=== PATIENT | male | born 1950 | race Caucasian/White ===

== ENCOUNTER 2020-07-31 13:07 | Emergency (ER) | payer OTHER ==
[~2020-07-31] VITALS: Ht 170.2 cm; Wt 60.0 kg
[2020-07-31 15:24] VITALS: BP 130/78
[2020-07-31 15:34] LABS: BASOPHILS % (AUTO) 0.4 % (0-1); EOSINOPHILS # (AUTO) 0.1 X10'3 (0-0.9); EOSINOPHILS % (AUTO) 1.1 % (0-6); HEMATOCRIT 45.1 % (42.0-52.0); HEMOGLOBIN 15.3 g/dl (14.0-17.9); LYMPHOCYTES # (AUTO) 1.7 X10'3 (1.1-4.8); LYMPHOCYTES % (AUTO) 16.2 % (21-51); MEAN CORPUSCULAR HEMOGLOBIN 31.1 PG (27.0-31.0); MEAN CORPUSCULAR HGB CONC 33.9 g/dL (33.0-36.5); MEAN CORPUSCULAR VOLUME 91.8 FL (78-98); MEAN PLATELET VOLUME 8.5 FL (7.4-10.4); MONOCYTES # (AUTO) 1.7 X10'3 (0-0.9); MONOCYTES % (AUTO) 16.7 % (2-12); NEUTROPHILS # (AUTO) 6.8 X10'3 (1.8-7.7); NEUTROPHILS % (AUTO) 65.6 % (42-75); PLATELET COUNT 214 X10'3 (140-440); RED BLOOD COUNT 4.92 X10'6 (4.70-6.10); RED CELL DISTRIBUTION WIDTH 12.5 % (11.5-14.5); WHITE BLOOD COUNT 10.4 X10'3 (4.5-11.0)
[2020-07-31 15:47] LABS: CLARITY,URINE CLEAR (Clear); COLOR,URINE STRAW (Yellow); GLUCOSE, URINE NEGATIVE (Neg); KETONES,URINE TRACE mg/dl (Neg); LEUKOCYTE ESTERASE ,URINE NEGATIVE (Neg); NITRITES, URINE NEGATIVE (Neg); OCCULT BLOOD,URINE TRACE-INTACT (Neg); PROTEIN,URINE NEGATIVE (Neg); UROBILINOGEN,URINE 0.2 E.U/dL (0.2-1.0)
[2020-07-31 15:48] LABS: UA COLLECTION TYPE URINAL
[2020-07-31 15:49] LABS: ALANINE AMINOTRANSFERASE 16 U/L (12-78); ALBUMIN 3.5 G/DL (3.4-5.0); ALBUMIN/GLOBULIN RATIO 0.7 (1.1-1.5); ALKALINE PHOSPHATASE 89 IU/L (46-116); ANION GAP -1 (8-16); ASPARTATE AMINO TRANSFERASE 14 U/L (10-37); BILIRUBIN,TOTAL 0.4 MG/DL (0.1-1.0); BLOOD UREA NITROGEN 19 MG/DL (7-18); BUN/CREATININE RATIO 22.4 (5.4-32.0); CALCIUM 9.5 MG/DL (8.5-10.1); CHLORIDE 100 MMOL/L (99-107); CREATININE 0.85 MG/DL (0.60-1.10); GLUCOSE 104 MG/DL (70-104); LIPASE 96 U/L (73-393); POTASSIUM 4.2 MMOL/L (3.5-5.1); SODIUM 136 MMOL/L (135-145); TOTAL CARBON DIOXIDE 36.7 MMOL/L (24-32); TOTAL PROTEIN 8.3 G/DL (6.4-8.2); eGFR 89 ML/MIN
[2020-07-31 15:58] LABS: BACTERIA,URINE NONE SEEN /HPF (Neg); MUCUS STRANDS NONE SEEN /LPF (Neg); SQUAMOUS EPITHELIAL CELL,UR FEW /LPF (FEW); WBC,URINE NONE SEEN /HPF (0-4)
== END 2020-07-31 16:53 | disposition home or self-care (01) ==
LOC: ER 13:08
DX: S33.5XXA Sprain of ligaments of lumbar spine, initial encounter (principal); J44.9 Chronic obstructive pulmonary disease, unspecified; R39.11 Hesitancy of micturition; Z87.891 Personal history of nicotine dependence; X58.XXXA Exposure to other specified factors, initial encounter; Y93.89 Activity, other specified; Y92.89 Other specified places as the place of occurrence of the external cause; Y99.8 Other external cause status
CPT/HCPCS: 36415; 74176; 80053; 81001; 83690; 85025; 99284

== ENCOUNTER 2022-03-08 19:44 | Inpatient (IN) | payer OTHER, MEDICARE ==
[~2022-03-08] VITALS: Ht 167.6 cm; Wt 55.5 kg
[~2022-03-08 19:44] MED LIST: BUDE10.2 INH; IPRA3AMP31 IH; LACT1CAP26 PO; TIOT18CA3 INH; ZOLP5TAB8 PO
[2022-03-08] MEDS ORDERED: albuterol 2.5 MG/3 ML nebule CONTNEB PRN (20:40)
--- NOTE | 2022-03-08 20:50 | NUR ---
Pt has hx of COPD and is on 4-5L O2 at home and his normal is 87% to 93%. Pt is on 6L and O2 sat is 87%
[2022-03-08 20:58] LABS: BASOPHILS % (AUTO) 0.3 % (0-1); EOSINOPHILS % (AUTO) 0 % (0-6); HEMATOCRIT 46.2 % (42.0-52.0); LYMPHOCYTES # (AUTO) 0.4 X10'3 (1.1-4.8); LYMPHOCYTES % (AUTO) 3.6 % (21-51); MEAN CORPUSCULAR HGB CONC 32.4 g/dL (33.0-36.5); MEAN CORPUSCULAR VOLUME 92.5 FL (78-98); MEAN PLATELET VOLUME 8.4 FL (7.4-10.4); MONOCYTES # (AUTO) 0.9 X10'3 (0-0.9); MONOCYTES % (AUTO) 8.4 % (2-12); NEUTROPHILS # (AUTO) 9.3 X10'3 (1.8-7.7); NEUTROPHILS % (AUTO) 87.7 % (42-75); PLATELET COUNT 142 X10'3 (140-440); RED BLOOD COUNT 4.99 X10'6 (4.70-6.10); RED CELL DISTRIBUTION WIDTH 14.6 % (11.5-14.5); WHITE BLOOD COUNT 10.6 X10'3 (4.5-11.0)
[2022-03-08] MEDS ORDERED: temazepam 15mg capsule PO PRN (21:00)
[2022-03-08] MEDS ORDERED: LORazepam 2 mg/ml vial IV ONE (21:00)
[2022-03-08 21:05] LABS: ALANINE AMINOTRANSFERASE 96 U/L (12-78); ALBUMIN 3.1 G/DL (3.4-5.0); ALBUMIN/GLOBULIN RATIO 0.9 (1.1-1.5); ALKALINE PHOSPHATASE 105 IU/L (46-116); ANION GAP 2 (8-16); ASPARTATE AMINO TRANSFERASE 61 U/L (10-37); BILIRUBIN,TOTAL 0.3 MG/DL (0.1-1.0); BLOOD UREA NITROGEN 32 MG/DL (7-18); CALCIUM 8.5 MG/DL (8.5-10.1); CHLORIDE 108 MMOL/L (99-107); CREATININE 0.78 MG/DL (0.60-1.10); GLUCOSE 138 MG/DL (70-104); POTASSIUM 4.4 MMOL/L (3.5-5.1); SODIUM 141 MMOL/L (135-145); TOTAL CARBON DIOXIDE 30.6 MMOL/L (24-32); TOTAL PROTEIN 6.7 G/DL (6.4-8.2); eGFR > 90 ML/MIN
[2022-03-08] MEDS ORDERED: furosemide 10 MG/1 ML 10ml inj IV ONE (21:05)
[2022-03-08 21:41] LABS: ABG BASE EXCESS -2.3 mmol/L (-2.0-2.0); ABG HCO3 27.3 mmol/L (22.0-26.0); ABG OXYGEN SATURATION 93.6 % (94-97); ABG PCO2 (T) 67.1 mmHg (35.0-48.0); ABG PO2 (T) 76.1 mmHg (75.0-100.0); ALLEN'S TEST POSITIVE; FCOHb 0.8 % (0.0-3.9); FLOW 6 L/min; FMetHb 0.2 % (0.0-1.5); FO2Hb 92.7 % (94-97); PATIENT TEMPERATURE 36.7; TOTAL HEMOGLOBIN 15.8 G/dl (14.0-18.0)
[2022-03-08] MEDS ORDERED: piperacillin/tazo 3.375gm/50ml 50 ML IV ONE (22:15)
[2022-03-08] MEDS ORDERED: vancomycin/NS 1 GM ADD-VANTAGE 250 ML IV ONE (22:15)
[2022-03-08] MEDS ORDERED: magnesium 4gm in 100ml NS 100 ML IV PRN (23:00)
[2022-03-08] MEDS ORDERED: potassium CL 10mEq/100ml bag 100 ML IV PRN (23:00)
[2022-03-08] MEDS ORDERED: HYDROcodone/acetaminophen 5mg/325mg tablet PO PRN (23:00)
[2022-03-08] MEDS ORDERED: ondansetron/PF 4mg/2ml inj IV PRN (23:00)
[2022-03-08] MEDS ORDERED: magnesium 2GM in 50ml NS 50 ML IV PRN (23:00)
[2022-03-08] MEDS ORDERED: morphine 2 MG/ML inj. syringe IV PRN (23:00)
[2022-03-08] MEDS ORDERED: POTASSIUM BICARB 20meq eff tab 20 MEQ TABLET.EFF PO PRN ×2 (23:00)
[2022-03-08] MEDS ORDERED: acetaminophen 325mg tablet PO PRN ×2 (23:00)
[2022-03-08] MEDS ORDERED: magnesium Cl slow-release 64mg tablet PO PRN (23:00)
[2022-03-08] MEDS ORDERED: mag hydrox/Alum hydrox/simeth 30ml oral suspension PO PRN (23:00)
[2022-03-09] MEDS ORDERED: MOME13HF INH (00:14)
[2022-03-09] MEDS ORDERED: ALPR-149 PO (00:15)
[2022-03-09] MEDS ORDERED: OMEP20CA16 PO (00:17)
[2022-03-09] MEDS ORDERED: PRED20TA PO (00:21)
--- NOTE | 2022-03-09 01:00 | NUR ---
Britany Yañez (daughter) main caregiver.
--- NOTE | 2022-03-09 01:01 | NUR ---
RT paged for saturations in the low to mid 80's on 6L O2. pt tried to get out of bed on own. seemed disoriented.
[2022-03-09] MEDS ORDERED: ipratropium 0.5 MG/2.5ML nebule IH PRN (01:55)
[2022-03-09] MEDS: ALPRAZolam 0.25mg tablet PO PRN ×2 (02:02→17:43)
[2022-03-09] MEDS: albuterol 2.5 MG/3 ML nebule NEB SCH ×4 (03:05→15:04)
--- NOTE | 2022-03-09 04:41 | NUR ---
PT FOUND TRIPODING. MOANING AND TRYING TO REMOVE BIBPAP MACHINE. AWARE.
[2022-03-09] MEDS ORDERED: LORazepam 2 mg/ml vial IV ONE (05:15)
[2022-03-09] MEDS: budesonide 0.5mg/2ml UD nebule IH SCH ×3 (07:03→20:58)
[2022-03-09] MEDS: pantoprazole 40mg Tablet.DR PO SCH (07:30)
[2022-03-09 07:32] LABS: BASOPHILS % (AUTO) 0.1 % (0-1); EOSINOPHILS % (AUTO) 0.1 % (0-6); HEMATOCRIT 45.1 % (42.0-52.0); HEMOGLOBIN 14.8 g/dl (14.0-17.9); LYMPHOCYTES # (AUTO) 0.7 X10'3 (1.1-4.8); LYMPHOCYTES % (AUTO) 8.8 % (21-51); MEAN CORPUSCULAR HEMOGLOBIN 30.7 PG (27.0-31.0); MEAN CORPUSCULAR HGB CONC 32.7 g/dL (33.0-36.5); MEAN CORPUSCULAR VOLUME 93.6 FL (78-98); MEAN PLATELET VOLUME 8.4 FL (7.4-10.4); MONOCYTES # (AUTO) 1.1 X10'3 (0-0.9); MONOCYTES % (AUTO) 12.5 % (2-12); NEUTROPHILS # (AUTO) 6.6 X10'3 (1.8-7.7); NEUTROPHILS % (AUTO) 78.5 % (42-75); PLATELET COUNT 135 X10'3 (140-440); RED BLOOD COUNT 4.82 X10'6 (4.70-6.10); RED CELL DISTRIBUTION WIDTH 14.6 % (11.5-14.5); WHITE BLOOD COUNT 8.4 X10'3 (4.5-11.0)
[2022-03-09 07:52] LABS: ALANINE AMINOTRANSFERASE 95 U/L (12-78); ALBUMIN/GLOBULIN RATIO 0.9 (1.1-1.5); ALKALINE PHOSPHATASE 94 IU/L (46-116); ANION GAP 2 (8-16); ASPARTATE AMINO TRANSFERASE 48 U/L (10-37); BILIRUBIN,TOTAL 0.4 MG/DL (0.1-1.0); BLOOD UREA NITROGEN 31 MG/DL (7-18); BUN/CREATININE RATIO 40.8 (5.4-32.0); CALCIUM 8.7 MG/DL (8.5-10.1); CHLORIDE 106 MMOL/L (99-107); CREATININE 0.76 MG/DL (0.60-1.10); GLUCOSE 117 MG/DL (70-104); POTASSIUM 4.3 MMOL/L (3.5-5.1); SODIUM 143 MMOL/L (135-145); TOTAL CARBON DIOXIDE 34.8 MMOL/L (24-32); TOTAL PROTEIN 6.4 G/DL (6.4-8.2); eGFR > 90 ML/MIN
[2022-03-09] MEDS: CefTRIAXone 2gm/NS 100ml IVPB 100 ML IV SCH (07:53)
[2022-03-09] MEDS: K and/or MAG REPLACEMENT MC SCH ×2 (08:00→20:00)
[2022-03-09] MEDS: methylPREDNISolone sod succ 125mg/2ml vial IV SCH ×2 (08:04→19:17)
[2022-03-09] MEDS: heparin, porcine 5000 units/ml vial SQ SCH ×2 (08:04→19:19)
[2022-03-09] MEDS: furosemide 40mg/4ml inj IV SCH ×2 (08:04→19:17)
[2022-03-09] MEDS: azithromycin/NS 500mg/250ml 250 ML IV SCH (08:15)
--- NOTE | 2022-03-09 08:35 | NUR ---
Attempted to call report to BARBARA España in PCU; RN unavailable, will call back.
[2022-03-09 09:00] VITALS: BP 99/68
--- NOTE | 2022-03-09 09:01 | NUR ---
Report given to BARBARA España in PCU.
--- NOTE | 2022-03-09 09:30 | NUR ---
Pt transported from ER to [address] A on [place] nasal cannula at 10lpm. Pt wears 4-5 lpm home o2 and saturates anywhere from 86-95% at baseline. Pt currently still off bipap and on 9 lpm with spo2 of 94%. Pt states he is ok off bipap for a little bit. Will cont to monitor
[2022-03-09 11:00] VITALS: BP 96/66
[2022-03-09 12:22] LABS: ABG BASE EXCESS 10.4 mmol/L (-2.0-2.0); ABG HCO3 40.3 mmol/L (22.0-26.0); ABG OXYGEN SATURATION 96.3 % (94-97); ABG PCO2 (T) 76.5 mmHg (35.0-48.0); ABG PO2 (T) 81.6 mmHg (75.0-100.0); ALLEN'S TEST NEGATIVE; FCOHb 0.5 % (0.0-3.9); FLOW 6 L/min; FMetHb 0.4 % (0.0-1.5); FO2Hb 95.4 % (94-97); PATIENT TEMPERATURE 36.6
--- NOTE | 2022-03-09 12:25 | NUR ---
PAGER ID: [phone] MESSAGE: [id number] Lazarus Bourgeois: ABG resulted - CO2 76.5 Bicarb [address] [facility] 0464
--- NOTE | 2022-03-09 12:26 | NUR ---
MD called, Wants patient back on bipap based on ABG results being worse. Respiratory paged.
[2022-03-09 15:00] VITALS: BP 92/62
[2022-03-09] MEDS ORDERED: albuterol 2.5 MG/3 ML nebule NEB PRN (15:55)
[2022-03-09 18:00] VITALS: BP 99/63
--- NOTE | 2022-03-09 18:06 | NUR ---
PAGER ID: [phone] MESSAGE: [phone] Lazarus Bourgeois: Has urge to pee constantly, gets very panicked, and acts like its very painful to urinate. Says it paige when he goes, and he only goes a tiny bit each time. UA? Patria IBANEZ
--- NOTE | 2022-03-09 18:30 | NUR ---
Patient in room PCU 3014. I have received report from Patria and had the opportunity to ask questions and assume patient care.
--- NOTE | 2022-03-09 18:38 | NUR ---
Problems reprioritized. Patient report given, questions answered & plan of care reviewed with Julia JIMENEZ.
[2022-03-09] MEDS: ipratropium/albuterol 3ml nebule NEB SCH ×2 (18:47→22:21)
[2022-03-09 19:15] VITALS: BP 107/62
[2022-03-09] MEDS: phenazopyridine 100mg tablet PO SCH (19:17)
[2022-03-09 23:00] VITALS: BP 99/63
[2022-03-10 02:07] VITALS: BP 90/57
--- NOTE | 2022-03-10 06:28 | NUR ---
Problems reprioritized. Patient report given, questions answered & plan of care reviewed with Patria JIMENEZ.
[2022-03-10] MEDS: ipratropium/albuterol 3ml nebule NEB SCH ×5 (07:47→22:51)
[2022-03-10] MEDS: budesonide 0.5mg/2ml UD nebule IH SCH ×2 (07:47→19:13)
[2022-03-10] MEDS: K and/or MAG REPLACEMENT MC SCH ×2 (08:00→19:07)
[2022-03-10 08:19] LABS: BASOPHILS % (AUTO) 0 % (0-1); EOSINOPHILS % (AUTO) 0 % (0-6); HEMATOCRIT 43.6 % (42.0-52.0); HEMOGLOBIN 14.5 g/dl (14.0-17.9); LYMPHOCYTES # (AUTO) 0.6 X10'3 (1.1-4.8); LYMPHOCYTES % (AUTO) 9.9 % (21-51); MEAN CORPUSCULAR HEMOGLOBIN 30.7 PG (27.0-31.0); MEAN CORPUSCULAR HGB CONC 33.2 g/dL (33.0-36.5); MEAN CORPUSCULAR VOLUME 92.4 FL (78-98); MEAN PLATELET VOLUME 8.5 FL (7.4-10.4); MONOCYTES # (AUTO) 0.6 X10'3 (0-0.9); MONOCYTES % (AUTO) 11.3 % (2-12); NEUTROPHILS # (AUTO) 4.5 X10'3 (1.8-7.7); NEUTROPHILS % (AUTO) 78.8 % (42-75); PLATELET COUNT 138 X10'3 (140-440); RED BLOOD COUNT 4.72 X10'6 (4.70-6.10); RED CELL DISTRIBUTION WIDTH 14.1 % (11.5-14.5); WHITE BLOOD COUNT 5.7 X10'3 (4.5-11.0)
[2022-03-10 08:36] LABS: ALANINE AMINOTRANSFERASE 80 U/L (12-78); ALBUMIN 2.7 G/DL (3.4-5.0); ALBUMIN/GLOBULIN RATIO 0.8 (1.1-1.5); ALKALINE PHOSPHATASE 84 IU/L (46-116); ANION GAP 4 (8-16); ASPARTATE AMINO TRANSFERASE 37 U/L (10-37); BILIRUBIN,TOTAL 0.3 MG/DL (0.1-1.0); BLOOD UREA NITROGEN 33 MG/DL (7-18); CALCIUM 8.9 MG/DL (8.5-10.1); CHLORIDE 100 MMOL/L (99-107); GLUCOSE 120 MG/DL (70-104); SODIUM 142 MMOL/L (135-145); TOTAL PROTEIN 5.9 G/DL (6.4-8.2); eGFR > 90 ML/MIN
[2022-03-10] MEDS: CefTRIAXone 2gm/NS 100ml IVPB 100 ML IV SCH (09:43)
[2022-03-10] MEDS: azithromycin/NS 500mg/250ml 250 ML IV SCH (09:43)
[2022-03-10] MEDS: phenazopyridine 100mg tablet PO SCH ×3 (09:43→21:26)
[2022-03-10] MEDS: furosemide 40mg/4ml inj IV SCH ×2 (09:44→19:25)
[2022-03-10] MEDS: heparin, porcine 5000 units/ml vial SQ SCH ×2 (09:44→19:26)
[2022-03-10] MEDS: methylPREDNISolone sod succ 125mg/2ml vial IV SCH (09:44)
[2022-03-10] MEDS: pantoprazole 40mg Tablet.DR PO SCH (09:45)
[2022-03-10 11:20] LABS: ABG BASE EXCESS 10.1 mmol/L (-2.0-2.0); ABG HCO3 37.3 mmol/L (22.0-26.0); ABG OXYGEN SATURATION 91.9 % (94-97); ABG PO2 (T) 62.4 mmHg (75.0-100.0); ALLEN'S TEST POSITIVE; FCOHb 0.4 % (0.0-3.9); FMetHb 0.4 % (0.0-1.5); FO2Hb 91.2 % (94-97); RESPIRATORY RATE 8 b/min; TIDAL VOLUME 498 mL; TOTAL HEMOGLOBIN 16.3 G/dl (14.0-18.0)
--- NOTE | 2022-03-10 16:00 | NUR ---
Problems reprioritized. Patient report given, questions answered & plan of care reviewed with Siria JIMENEZ.
[2022-03-10 18:00] VITALS: BP 99/63
[2022-03-10 22:00] VITALS: BP 106/50
[2022-03-11] MEDS: ipratropium/albuterol 3ml nebule NEB SCH ×5 (06:48→23:19)
[2022-03-11] MEDS: budesonide 0.5mg/2ml UD nebule IH SCH ×2 (06:50→19:56)
[2022-03-11 07:00] VITALS: BP 109/84
[2022-03-11 07:10] LABS: BASOPHILS % (AUTO) 0.1 % (0-1); EOSINOPHILS % (AUTO) 0 % (0-6); HEMATOCRIT 49.3 % (42.0-52.0); HEMOGLOBIN 16.3 g/dl (14.0-17.9); LYMPHOCYTES # (AUTO) 1.4 X10'3 (1.1-4.8); LYMPHOCYTES % (AUTO) 14.7 % (21-51); MEAN CORPUSCULAR HEMOGLOBIN 30.9 PG (27.0-31.0); MEAN CORPUSCULAR HGB CONC 33.1 g/dL (33.0-36.5); MEAN CORPUSCULAR VOLUME 93.5 FL (78-98); MEAN PLATELET VOLUME 8.4 FL (7.4-10.4); MONOCYTES # (AUTO) 1.1 X10'3 (0-0.9); MONOCYTES % (AUTO) 12.4 % (2-12); NEUTROPHILS # (AUTO) 6.7 X10'3 (1.8-7.7); NEUTROPHILS % (AUTO) 72.8 % (42-75); PLATELET COUNT 202 X10'3 (140-440); RED BLOOD COUNT 5.28 X10'6 (4.70-6.10); RED CELL DISTRIBUTION WIDTH 13.9 % (11.5-14.5); WHITE BLOOD COUNT 9.2 X10'3 (4.5-11.0)
--- NOTE | 2022-03-11 07:25 | NUR ---
Pt found on 8lpm [facility] sp02 order to keep sp02 90-94%, pt alert oriented following commands, intermittent confused, placed on bipap. NC titrate to 4lpm per home use, BARBARA España notified, awaiting new sp02 orders from .
[2022-03-11 07:29] LABS: ALANINE AMINOTRANSFERASE 78 U/L (12-78); ALBUMIN 3.1 G/DL (3.4-5.0); ALBUMIN/GLOBULIN RATIO 0.8 (1.1-1.5); ALKALINE PHOSPHATASE 96 IU/L (46-116); ANION GAP 1 (8-16); ASPARTATE AMINO TRANSFERASE 32 U/L (10-37); BILIRUBIN,TOTAL 0.3 MG/DL (0.1-1.0); BLOOD UREA NITROGEN 37 MG/DL (7-18); BUN/CREATININE RATIO 51.4 (5.4-32.0); CHLORIDE 98 MMOL/L (99-107); CREATININE 0.72 MG/DL (0.60-1.10); GLUCOSE 100 MG/DL (70-104); SODIUM 142 MMOL/L (135-145); TOTAL PROTEIN 6.9 G/DL (6.4-8.2); eGFR > 90 ML/MIN
[2022-03-11 07:37] LABS: TOTAL CARBON DIOXIDE 43.5 MMOL/L (24-32)
--- NOTE | 2022-03-11 07:43 | NUR ---
PAGER ID: [phone] MESSAGE: [phone] Lazarus Bourgeois: Critical CO2 43.5 - Patient pulled off BIPAP last night, night RN had him on nasal cannula all night. He is currently on BIPAP now. [facility] 8548
--- NOTE | 2022-03-11 07:50 | NUR ---
Stat ABG per MD telephone order. Said he will input order - RT paged: [phone] Lazarus Bourgeois: STAT ABG per MD!
[2022-03-11] MEDS: CefTRIAXone 2gm/NS 100ml IVPB 100 ML IV SCH ×2 (08:00→11:22)
[2022-03-11] MEDS: K and/or MAG REPLACEMENT MC SCH ×2 (08:00→20:00)
[2022-03-11 08:10] LABS: ABG BASE EXCESS 13.2 mmol/L (-2.0-2.0); ABG HCO3 40.2 mmol/L (22.0-26.0); ABG OXYGEN SATURATION 90.1 % (94-97); ABG PCO2 (T) 57.1 mmHg (35.0-48.0); ABG PO2 (T) 54.3 mmHg (75.0-100.0); ALLEN'S TEST POSITIVE; FCOHb 0.5 % (0.0-3.9); FMetHb 0.3 % (0.0-1.5); FO2Hb 89.4 % (94-97); RESPIRATORY RATE 10 b/min; TOTAL HEMOGLOBIN 17.4 G/dl (14.0-18.0)
--- NOTE | 2022-03-11 08:25 | NUR ---
Post abg results critical value Reported to BARBARA España Reported to , no new orders given, pt taken off bipap placed on 6lpm NC for breakfast. Addendum: 03/11/22 at 0826 by Serena Reid RT Amended: Links added.
[2022-03-11 11:00] VITALS: BP 107/67
[2022-03-11] MEDS: heparin, porcine 5000 units/ml vial SQ SCH ×2 (11:21→21:34)
[2022-03-11] MEDS: furosemide 40mg/4ml inj IV SCH ×3 (11:21→21:34)
[2022-03-11] MEDS: azithromycin/NS 500mg/250ml 250 ML IV SCH (11:22)
[2022-03-11] MEDS: pantoprazole 40mg Tablet.DR PO SCH (11:22)
[2022-03-11] MEDS: phenazopyridine 100mg tablet PO SCH ×3 (11:24→18:00)
[2022-03-11] MEDS: predniSONE 20 mg tablet PO SCH (11:24)
[2022-03-11] MEDS: ALPRAZolam 0.25mg tablet PO PRN (14:18)
[2022-03-11] MEDS ORDERED: ziprasidone IM 20mg inj **IM only IM ONE (14:55)
[2022-03-11 15:00] VITALS: BP 109/76
--- NOTE | 2022-03-11 21:30 | NUR ---
Pt was continuously removing his BiPAP with oxygen saturation dropping to the low 80s. Pt re-directed and education given. Will continue to monitor.
--- NOTE | 2022-03-11 21:46 | NUR ---
2124: Schedule lasix not Administered due to low BP reading 79/51, MAP-89, P-99. Medication returned to [facility]is. MD Navarrete aware. 2129: Also, Pyridium tab not administered due to pt sleeping at this time.
--- NOTE | 2022-03-11 22:10 | NUR ---
I mistakenly undo Rocephin that was administered at 0800, 03/11/2022. This was corrected as being already administered at scheduled time.
[2022-03-12 00:25] VITALS: BP 79/51
[2022-03-12] MEDS ORDERED: LORazepam 2 mg/ml vial IV ONE (00:50)
--- NOTE | 2022-03-12 01:00 | NUR ---
New order by MD Navarrete, for Ativan 0.5mg IV once for anxiety.
[2022-03-12 02:18] VITALS: BP 100/65
--- NOTE | 2022-03-12 06:57 | NUR ---
Problems reprioritized. Patient report given, BARBARA España, questions answered & plan of care reviewed with .
[2022-03-12 07:00] VITALS: BP 92/57
[2022-03-12 07:05] LABS: BASOPHILS % (AUTO) 0.2 % (0-1); EOSINOPHILS % (AUTO) 0.1 % (0-6); HEMATOCRIT 48.2 % (42.0-52.0); HEMOGLOBIN 15.8 g/dl (14.0-17.9); LYMPHOCYTES % (AUTO) 16.2 % (21-51); MEAN CORPUSCULAR HEMOGLOBIN 30.1 PG (27.0-31.0); MEAN CORPUSCULAR HGB CONC 32.8 g/dL (33.0-36.5); MEAN CORPUSCULAR VOLUME 91.6 FL (78-98); MEAN PLATELET VOLUME 8.6 FL (7.4-10.4); MONOCYTES # (AUTO) 0.9 X10'3 (0-0.9); MONOCYTES % (AUTO) 14.3 % (2-12); NEUTROPHILS # (AUTO) 4.2 X10'3 (1.8-7.7); NEUTROPHILS % (AUTO) 69.2 % (42-75); PLATELET COUNT 194 X10'3 (140-440); RED BLOOD COUNT 5.27 X10'6 (4.70-6.10); RED CELL DISTRIBUTION WIDTH 14.1 % (11.5-14.5)
[2022-03-12 07:23] LABS: ALANINE AMINOTRANSFERASE 54 U/L (12-78); ALBUMIN 2.9 G/DL (3.4-5.0); ALBUMIN/GLOBULIN RATIO 0.8 (1.1-1.5); ALKALINE PHOSPHATASE 93 IU/L (46-116); ANION GAP 2 (8-16); ASPARTATE AMINO TRANSFERASE 22 U/L (10-37); BILIRUBIN,TOTAL 0.4 MG/DL (0.1-1.0); BLOOD UREA NITROGEN 39 MG/DL (7-18); BUN/CREATININE RATIO 54.2 (5.4-32.0); CALCIUM 8.9 MG/DL (8.5-10.1); CHLORIDE 101 MMOL/L (99-107); CREATININE 0.72 MG/DL (0.60-1.10); GLUCOSE 116 MG/DL (70-104); POTASSIUM 4.1 MMOL/L (3.5-5.1); SODIUM 143 MMOL/L (135-145); TOTAL CARBON DIOXIDE 39.9 MMOL/L (24-32); TOTAL PROTEIN 6.4 G/DL (6.4-8.2); eGFR > 90 ML/MIN
[2022-03-12] MEDS: budesonide 0.5mg/2ml UD nebule IH SCH (07:45)
[2022-03-12] MEDS: ipratropium/albuterol 3ml nebule NEB SCH ×3 (07:45→15:24)
[2022-03-12] MEDS: K and/or MAG REPLACEMENT MC SCH (08:00)
--- NOTE | 2022-03-12 09:27 | NUR ---
Initial: pt admitted w/ acute hypercapnic hypoxic respiratory failure and COPD exacerbation per EMR, currently on BiPAP. Currently on Heart Healthy diet w/ avg intake 35% x 8 meals not meeting needs. Recommend Liberalizing to REGULAR diet given no cardiac hx in EMR. Also recommend Ensure Enlive TID to assist w/ meeting needs. LBM 03/11. Will continue to monitor. Recs: 1. Liberalize to Regular diet given no cardiac hx in EMR 2. ensure Enlive TID; pending MD verification 3. Bowel care per rx 4. Scaled wts Addendum: 03/12/22 at [address] Amended: Links added.
--- NOTE | 2022-03-12 10:21 | NUR ---
PAGER ID: [phone] MESSAGE: [phone] Lazarus Bourgeois: Dietary asking if he can be switched to a regular diet instead of heart healthy? Patria IBANEZ
[2022-03-12 11:00] VITALS: BP 116/76
[2022-03-12] MEDS: heparin, porcine 5000 units/ml vial SQ SCH (11:23)
[2022-03-12] MEDS: azithromycin/NS 500mg/250ml 250 ML IV SCH (11:24)
[2022-03-12] MEDS: CefTRIAXone 2gm/NS 100ml IVPB 100 ML IV SCH (11:24)
[2022-03-12] MEDS: furosemide 40mg/4ml inj IV SCH (11:29)
[2022-03-12] MEDS: phenazopyridine 100mg tablet PO SCH (11:30)
[2022-03-12] MEDS: pantoprazole 40mg Tablet.DR PO SCH (11:30)
[2022-03-12] MEDS: predniSONE 20 mg tablet PO SCH (11:30)
[2022-03-12] MEDS ORDERED: lactose-reduced food (Ensure Enlive) - 237ml bottle PO SCH (13:00)
[2022-03-12 15:00] VITALS: BP 134/63
--- NOTE | 2022-03-12 19:00 | NUR ---
Per patient he is no longer experiencing burning w/urination, pyridium not given today.
--- NOTE | 2022-03-12 19:14 | NUR ---
Patient left w/EMS to [facility] w/o problem.
== END 2022-03-12 19:15 | DRG 193 ==
LOC: ER 19:44 → ED HOLD 23:06 → PCU 3S 03-09 09:37
PROVIDERS: ADMIT Internal Medicine; ATTEND Family Medicine
PROC: 5A09357 Assistance with Respiratory Ventilation, Less than 24 Consecutive Hours, Continuous Positive Airway Pressure (ICD-10-PCS; principal; 2022-03-09)
PROC: 5A09357 Assistance with Respiratory Ventilation, Less than 24 Consecutive Hours, Continuous Positive Airway Pressure (ICD-10-PCS; 2022-03-10)
PROC: 5A09357 Assistance with Respiratory Ventilation, Less than 24 Consecutive Hours, Continuous Positive Airway Pressure (ICD-10-PCS; 2022-03-11)
PROC: 5A09357 Assistance with Respiratory Ventilation, Less than 24 Consecutive Hours, Continuous Positive Airway Pressure (ICD-10-PCS; 2022-03-12)
DX: J18.9 Pneumonia, unspecified organism (principal); J96.22 Acute and chronic respiratory failure with hypercapnia; J96.21 Acute and chronic respiratory failure with hypoxia; J44.1 Chronic obstructive pulmonary disease with (acute) exacerbation; J44.0 Chronic obstructive pulmonary disease with (acute) lower respiratory infection; I50.30 Unspecified diastolic (congestive) heart failure; F41.9 Anxiety disorder, unspecified; Z66 Do not resuscitate; I25.10 Atherosclerotic heart disease of native coronary artery without angina pectoris; Z20.822 Contact with and (suspected) exposure to COVID-19; I27.20 Pulmonary hypertension, unspecified; Z79.51 Long term (current) use of inhaled steroids; Z99.81 Dependence on supplemental oxygen
CPT/HCPCS: 36415; 36600; 71045; 71250; 80053; 82803; 83605; 83880; 84145; 84484; 85018; 85025; 87040; 87088; 87635; 93005; 93308; 94640; 94660; 94667; 94668; 94760; 96374; 96375; 97110; 97161; 97530; 99285; A7015; G0378; J0456; J0696; J1644; J1940; J2060; J2543; J2930; J3370; J3486; J7512